=== PATIENT | female | born 1955 | race Asian ===

== ENCOUNTER 2022-01-08 13:09 | Emergency (ER) | payer OTHER ==
[2022-01-08 13:28] VITALS: BP 112/80; PULSE 91; TEMP 98.2; BMI 23.5
[2022-01-08] MEDS ORDERED: KETOROLAC TROMETHAMINE 15 MG/ML VIAL IM ONE (13:57)
== END 2022-01-08 15:37 | disposition home or self-care (01) ==
LOC: JERFT 13:09
PROC: 3E0233Z Introduction of Anti-inflammatory into Muscle, Percutaneous Approach (ICD-10-PCS; principal; 2022-01-08)
DX: M25.551 Pain in right hip (principal); M54.50 Low back pain, unspecified; W01.0XXA Fall on same level from slipping, tripping and stumbling without subsequent striking against object, initial encounter; Y92.511 Restaurant or cafe as the place of occurrence of the external cause
CPT/HCPCS: 72100-TC-FY; 73502-TC-RT-FY; 73552-TC-RT-FY; 99285-25

== ENCOUNTER 2022-04-28 04:08 | Day surgery (SDC) | payer OTHER ==
[2022-04-24 15:26] VITALS: BMI 23.0
[2022-04-28] MEDS ORDERED: PROPOFOL 20 ML ONE (11:20)
[2022-04-28] MEDS ORDERED: MIDAZOLAM HCL 2 MG/2 ML SINGLE DOSE VIAL ONE (11:20)
[2022-04-28] MEDS ORDERED: LIDOCAINE HCL 1%, 10 MG/ML (20ML VIAL) ONE (11:28)
[2022-04-28] MEDS ORDERED: BUPIVACAINE HCL/PF 0.5% (5MG/ML) 10 ML VIAL ONE (11:28)
[2022-04-28] MEDS ORDERED: ceFAZolin SODIUM 1 GM VIAL ONE (11:52)
[2022-04-28] MEDS ORDERED: ceFAZolin SODIUM 1 GM VIAL IVPB ONE (11:54)
[2022-04-28] MEDS ORDERED: BUPIVACAINE HCL/PF 0.5% (5 MG/ML) 30 ML VIAL IJ ONE (12:06)
[2022-04-28] MEDS ORDERED: LIDOCAINE HCL 1%, 10 MG/ML (20ML VIAL) NR ONE (12:06)
[2022-04-28 12:52] VITALS: RESP 16
[2022-04-28 13:29] VITALS: BP 124/69; PULSE 84; TEMP 98
== END 2022-04-28 13:58 | disposition home or self-care (01) ==
LOC: JASU-SURG 04:08
PROVIDERS: ATTEND Orthopaedic Surgery
PROC: 01N50ZZ Release Median Nerve, Open Approach (ICD-10-PCS; principal; 2022-04-28 11:30)
DX: G56.01 Carpal tunnel syndrome, right upper limb (principal)
CPT/HCPCS: 82962; 88304-TC

== ENCOUNTER 2024-03-08 12:27 | Emergency (ER) | payer OTHER ==
[2024-03-08] MEDS ORDERED: ACETAMINOPHEN 500 MG TABLET (FP) ONE (13:25)
[2024-03-08] MEDS: ACETAMINOPHEN 500 MG TABLET (FP) PO ONE (13:45)
[2024-03-08] MEDS: SODIUM CHLORIDE 1,000 ML IV STA (13:45)
[2024-03-08 13:53] LABS: BASO % 0.4 % (0-2.0); EOS % 1.3 % (0-4.5); HEMATOCRIT 42.2 % (32.4-45.2); HEMOGLOBIN 14.1 GM/dL (10.7-15.3); LYMPH % 30.6 % (8-40); MCH 30.7 pg (25.7-33.7); MCHC 33.4 g/dl (32.0-36.0); MEAN CELL VOLUME 91.9 fl (80-96); MONO % 8.4 % (3.8-10.2); NEUT % 59.3 % (42.8-82.8); PLATELET COUNT 271 10^3/uL (134-434); RDW 13.1 % (11.6-15.6); WHITE BLOOD COUNT 6.3 K/mm3 (4.0-10.0)
[2024-03-08 13:59] LABS: MEAN PLT VOLUME 5.4 fl (7.5-11.1)
[2024-03-08 14:16] LABS: POTASSIUM 4.8 mmol/L (3.5-5.1)
[2024-03-08 14:19] LABS: ALBUMIN 3.7 g/dl (3.4-5.0)
[2024-03-08 14:20] LABS: BLOOD UREA NITROGEN 15.3 mg/dL (7-18)
[2024-03-08 14:23] LABS: CREATININE 0.6 mg/dL (0.55-1.3)
[2024-03-08 14:24] LABS: BILIRUBIN,TOTAL 0.4 mg/dL (0.2-1); TOT PROT 6.6 g/dl (6.4-8.2)
[2024-03-08 15:26] VITALS: BP 114/78; PULSE 82; RESP 19; TEMP 98.2; BMI 24.9
== END 2024-03-08 15:38 | disposition home or self-care (01) ==
LOC: JER 12:27
PROC: 3E0337Z Introduction of Electrolytic and Water Balance Substance into Peripheral Vein, Percutaneous Approach (ICD-10-PCS; principal; 2024-03-08)
DX: U07.1 COVID-19 (principal); R05.9 Cough, unspecified; R53.83 Other fatigue; J02.9 Acute pharyngitis, unspecified; R09.81 Nasal congestion; R11.0 Nausea
CPT/HCPCS: 36415; 71046-TC-FY; 80053; 85025; 99284-25

== ENCOUNTER 2024-03-22 00:50 | Observation (INO) | payer OTHER ==
[2024-03-22 00:54] VITALS: BMI 23.1
[2024-03-22] MEDS ORDERED: METOCLOPRAMIDE HCL INJECTION 10 MG/2 ML VIAL ONE (01:52)
[2024-03-22 01:53] LABS: PH,URINE 7.5 (5.0-8.0); URINE APPEARANCE CLEAR; URINE BILIRUBIN NEGATIVE (NEGATIVE); URINE COLOR YELLOW; URINE GLUCOSE (UA) NEGATIVE (NEGATIVE); URINE KETONE NEGATIVE (NEGATIVE); URINE LEUK ESTERASE NEGATIVE (NEGATIVE); URINE NITRITE NEGATIVE (NEGATIVE); URINE PROTEIN NEGATIVE (NEGATIVE); URINE UROBILINOGEN 0.2 mg/dL (0.2-1.0)
[2024-03-22 01:54] LABS: BASO % 0.4 % (0-2.0); EOS % 1.6 % (0-4.5); HEMATOCRIT 37.6 % (32.4-45.2); HEMOGLOBIN 12.8 GM/dL (10.7-15.3); LYMPH % 36.7 % (8-40); MCHC 34.1 g/dl (32.0-36.0); MEAN CELL VOLUME 90.8 fl (80-96); MONO % 8.1 % (3.8-10.2); NEUT % 53.2 % (42.8-82.8); PLATELET COUNT 315 10^3/uL (134-434); RBC 4.14 M/mm3 (3.60-5.2); RDW 13.2 % (11.6-15.6); WHITE BLOOD COUNT 6.1 K/mm3 (4.0-10.0)
[2024-03-22 02:00] LABS: INR 0.89 (0.83-1.09); PROTHROMBIN TIME (PATIENT) 10.3 SEC (9.7-13.0)
[2024-03-22] MEDS: METOCLOPRAMIDE HCL INJECTION 10 MG/2 ML VIAL IVPUSH ONE (02:00)
[2024-03-22 02:02] LABS: ACTIVATED PTT 31.9 SECONDS (25.2-36.5)
[2024-03-22 02:04] LABS: MEAN PLT VOLUME 5.3 fl (7.5-11.1)
[2024-03-22 02:11] LABS: CHLORIDE 109 mmol/L (98-107); POTASSIUM 3.9 mmol/L (3.5-5.1); SODIUM 141 mmol/L (136-145)
[2024-03-22 02:12] LABS: CALCIUM 8.3 mg/dL (8.5-10.1)
[2024-03-22 02:14] LABS: ALBUMIN 3.3 g/dl (3.4-5.0); ANION GAP 6 mmol/L (4-13); CO2 25 mmol/L (21-32)
[2024-03-22 02:15] LABS: BLOOD UREA NITROGEN 18.7 mg/dL (7-18); GLUCOSE,RANDOM 104 mg/dL (74-106)
[2024-03-22 02:16] LABS: CREATININE 0.6 mg/dL (0.55-1.3); SGOT/AST 15 U/L (15-37); SGPT/ALT 22 U/L (13-61)
[2024-03-22 02:19] LABS: CHOLESTEROL 155 mg/dL (50-200); TOT PROT 5.8 g/dl (6.4-8.2)
[2024-03-22 02:20] LABS: ALK PHOS 113 U/L (45-117); BILIRUBIN,TOTAL 0.4 mg/dL (0.2-1); HDL CHOLESTEROL 55 mg/dL (40-60); LDL CHOLESTEROL (ONLY SJRH) 83 mg/dL (5-100)
[2024-03-22] MEDS: ACETAMINOPHEN 1000 MG/100 ML BAG IVPB ONE (02:35)
[2024-03-22] MEDS: SODIUM CHLORIDE 0.9% 500 ML INFUS.BAG IV ONE (02:37)
[2024-03-22] MEDS ORDERED: ACETAMINOPHEN INJECTION 100 ML IVPB ONE (03:07)
[2024-03-22] MEDS ORDERED: ASPIRIN 325 MG TABLET ONE (04:23)
[2024-03-22] MEDS: ASPIRIN 325 MG TABLET PO ONE (04:36)
[2024-03-22] MEDS: SODIUM CHLORIDE 1,000 ML IV SCH (04:36)
[2024-03-22] MEDS ORDERED: ATORVASTATIN CA 40 MG TABLET (FP) ONE (06:18)
[2024-03-22] MEDS: ATORVASTATIN CA 80 MG TABLET (FP) PO SCH (06:26)
[2024-03-22 07:37] LABS: POTASSIUM 4.2 mmol/L (3.5-5.1)
[2024-03-22 07:43] LABS: ALBUMIN 3.2 g/dl (3.4-5.0); BASO % 0.2 % (0-2.0); BLOOD UREA NITROGEN 13.6 mg/dL (7-18); CALCIUM 8.4 mg/dL (8.5-10.1); EOS % 1.3 % (0-4.5); HEMATOCRIT 36.8 % (32.4-45.2); HEMOGLOBIN 12.4 GM/dL (10.7-15.3); LYMPH % 31.6 % (8-40); MAGNESIUM 2.2 mg/dL (1.8-2.4); MCH 30.9 pg (25.7-33.7); MCHC 33.5 g/dl (32.0-36.0); MEAN CELL VOLUME 92.2 fl (80-96); MONO % 6.7 % (3.8-10.2); NEUT % 60.2 % (42.8-82.8); PLATELET COUNT 299 10^3/uL (134-434); RDW 12.7 % (11.6-15.6); WHITE BLOOD COUNT 6.3 K/mm3 (4.0-10.0)
[2024-03-22 07:44] LABS: MEAN PLT VOLUME 5.5 fl (7.5-11.1)
[2024-03-22 07:47] LABS: BILIRUBIN,TOTAL 0.5 mg/dL (0.2-1); CREATININE 0.5 mg/dL (0.55-1.3); TOT PROT 5.4 g/dl (6.4-8.2)
[2024-03-22] MEDS ORDERED: ENOXAPARIN NA (PORCINE) 40 MG/0.4 ML DISP.SYRIN SQ ONE (09:19)
[2024-03-22] MEDS ORDERED: metoPROLOL SUCCINATE 25 MG TAB.SR.24H (FP) PO ONE (09:19)
[2024-03-22] MEDS ORDERED: ASPIRIN 81 MG CHEWABLE TABLETS ONE (09:19)
[2024-03-22] MEDS: ASPIRIN 81 MG CHEWABLE TABLETS PO SCH (09:52)
[2024-03-22] MEDS: ENOXAPARIN NA (PORCINE) 40 MG/0.4 ML DISP.SYRIN SQ SCH (09:52)
[2024-03-22] MEDS: metoPROLOL SUCCINATE 25 MG TAB.SR.24H (FP) PO SCH (09:53)
[2024-03-22] MEDS ORDERED: ATORVASTATIN CA 40 MG TABLET (FP) PO SCH (11:43)
[2024-03-22 14:38] VITALS: BP 108/63; PULSE 63; RESP 16; TEMP 98.1
[2024-03-22] MEDS ORDERED: METHIMAZOLE 5 MG TABLET PO SCH (22:00)
[2024-03-22] MEDS ORDERED: ROSUVASTATIN CA 5 MG TABLET PO SCH (22:00)
[2024-03-22] MEDS ORDERED: LOSARTAN POTASSIUM 25 MG TABLET PO SCH (22:00)
== END 2024-03-22 14:56 | disposition home or self-care (01) ==
LOC: JER 00:50 → JERBED 03:39
PROVIDERS: ADMIT Internal Medicine; ATTEND Nurse Practitioner Acute Care
PROC: 3E033NZ Introduction of Analgesics, Hypnotics, Sedatives into Peripheral Vein, Percutaneous Approach (ICD-10-PCS; principal; 2024-03-22)
PROC: 3E023GC Introduction of Other Therapeutic Substance into Muscle, Percutaneous Approach (ICD-10-PCS; 2024-03-22)
PROC: 3E033GC Introduction of Other Therapeutic Substance into Peripheral Vein, Percutaneous Approach (ICD-10-PCS; 2024-03-22)
PROC: 3E0337Z Introduction of Electrolytic and Water Balance Substance into Peripheral Vein, Percutaneous Approach (ICD-10-PCS; 2024-03-22)
DX: R29.810 Facial weakness (principal); R51.9 Headache, unspecified; R73.03 Prediabetes; E05.90 Thyrotoxicosis, unspecified without thyrotoxic crisis or storm; I10 Essential (primary) hypertension; E78.5 Hyperlipidemia, unspecified; Z29.89 Encounter for other specified prophylactic measures
CPT/HCPCS: 36415; 70450-TC; 70496-TC; 70498-TC; 70551-TC; 80053; 80061; 81003; 82550; 82962; 83036; 83735; 84100; 84484; 85025; 85610; 85651; 85730; 86618; 86850; 86900; 86901; 87635; 93005; 93010; 93306-TC; 99285-25; G0378; J0131; Q9967